=== PATIENT | male | born 1990 | race Asian ===

== ENCOUNTER 2017-04-16 16:54 | Emergency (ER) | payer OTHER ==
[2017-04-16 16:59] VITALS: BP 150/76
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
== END 2017-04-16 18:55 | disposition home or self-care (01) ==
LOC: ED 16:54
DX: S05.90XA Unspecified injury of unspecified eye and orbit, initial encounter (principal); X58.XXXA Exposure to other specified factors, initial encounter; Y93.9 Activity, unspecified; Y92.9 Unspecified place or not applicable
CPT/HCPCS: 99281